=== PATIENT | male | born 1990 | race Caucasian/White ===

== ENCOUNTER 2019-08-04 09:05 | Outpatient (CLI) | payer BC ==
--- NOTE | 2019-08-04 09:28 | ULT ---
SOFT TISSUE ULTRASOUND: HISTORY: Palpable mass in the right supraclavicular region. FINDINGS: Targeted sonographic imaging of the region of concern was performed. FINDINGS: There is a well-circumscribed oval hyperechoic focus measuring 2.2 x 2.6 x 0.8 cm. Given increased ec hogenicity, a well encapsulated lipoma is favored. Confirmation with a postcontrast soft tissue neck CT is recommended. IMPRESSION: Probable lipoma, corresponding to the region of concern. Confirmation with postcontrast soft tissue n karla CT is recommended. Transcribed Date/Time: 08/04/2019 9:34 AM
== END 2019-08-04 09:06 | disposition home or self-care (01) ==
LOC: BICULT 09:05
PROVIDERS: ATTEND Internal Medicine
DX: R22.2 Localized swelling, mass and lump, trunk (principal)
CPT/HCPCS: 76536